=== PATIENT | female | born 2000 | race Two or more races ===

== ENCOUNTER → 2024-09-14 | Emergency (ER) | payer OTHER ==
[~2024-09-14] VITALS: Ht 157.5 cm; Wt 52.2 kg
[~2024-09-14] MED LIST: AMOX-CLAV 875-1 EACH PO; CEFTRIAXONE SODIUM 1,000 MG VIAL IM ONE; KETOROLAC TROMETHAMINE 30 MG VIAL IM ONE; TUSSIN DM LIQU118 ML PO; VENLAFAXINE HC150 M1
== END | disposition home or self-care (01) ==
LOC: ER 13:55
DX: J03.80 Acute tonsillitis due to other specified organisms (principal)